=== PATIENT | male | born 1940 | race Caucasian/White ===

== ENCOUNTER 2018-03-14 09:10 | Emergency (ER) | payer OTHER ==
[~2018-03-14] VITALS: Ht 172.7 cm; Wt 102.1 kg
[~2018-03-14 09:10] MED LIST: ALLO300 PO; AMLO5 PO; ASPI81EC PO; Accupril40 MG PO; CAPHYD; CARV3.125 PO; CIPR500 PO; CYAN1000 PO; CYCL10 PO; Cardura Xl8 MG PO; DILT240; DILT240 PO; DOCU100 PO; DOXA4 PO; FISH1000; HYDR10; METF500; METF500 PO; OXYACE5T PO; PHENA200 PO; QUIN10; QUIN10 PO; TAMS.4ER PO; UNKNOWN BP MED
[2018-03-14 09:46] LABS: BASOPHILS ABSOLUTE AUTO 0.04 K/mm3 (0.00-0.23); BASOPHILS PERCENT AUTO 1 % (0-2); EOSINOPHILS ABSOLUTE AUTO 0.32 K/mm3 (0.00-0.68); EOSINOPHILS PERCENT AUTO 4 % (0-6); Hematocrit 36.5 % (37.0-53.0); IMMATURE GRAN ABSOLUTE AUTO 0.03 K/mm3 (0.00-0.10); IMMATURE GRAN PERCENT AUTO 0 % (0-1); LYMPHOCYTES ABSOLUTE AUTO 2.19 K/mm3 (0.84-5.20); LYMPHOCYTES PERCENT AUTO 29 % (21-46); MONOCYTES ABSOLUTE AUTO 0.57 K/mm3 (0.16-1.47); MONOCYTES PERCENT AUTO 8 % (4-13); Mean Corpuscular HGB 29.3 pg (26.0-34.0); Mean Corpuscular HGB Conc 32.9 g/dL (31.5-36.5); Mean Corpuscular Volume 89 fL (80-100); NEUTROPHILS ABSOLUTE AUTO 4.36 K/mm3 (1.96-9.15); NEUTROPHILS PERCENT AUTO 58 % (41-73); Platelet Count 206 K/mm3 (150-400); RDW Standard Deviation 49.1 fL (35.1-46.3); White Blood Cell Count 7.51 K/mm3 (4.00-11.30)
[2018-03-14 09:51] LABS: Albumin, Blood 3.2 g/dL (3.4-5.0); Albumin/Globulin Ratio 0.9 (0.8-1.8); Bilirubin, Total 0.5 mg/dL (0.1-1.0); Bun/Creatinine Ratio 21.4 (12.0-20.0); Calcium, Blood 7.9 mg/dL (8.5-10.1); Creatinine, Blood 1.31 mg/dL (0.60-1.20); Globulin, Blood 3.4 g/dL (2.2-4.0); Potassium, Blood 4.3 mmol/L (3.5-5.5); Total Protein, Blood 6.6 g/dL (6.4-8.2)
[2018-03-14] MEDS ORDERED: Voltaren100 GM TOP (12:50)
[2018-03-14] MEDS ORDERED: LIDO700A20 TOP (13:06)
== END 2018-03-14 13:15 | disposition home or self-care (01) ==
LOC: ER 09:10
PROVIDERS: Emergency Medicine
DX: R40.0 Somnolence (principal); M54.2 Cervicalgia; M54.9 Dorsalgia, unspecified; G89.29 Other chronic pain; R53.83 Other fatigue; I12.9 Hypertensive chronic kidney disease with stage 1 through stage 4 chronic kidney disease, or unspecified chronic kidney disease; N18.9 Chronic kidney disease, unspecified; F17.200 Nicotine dependence, unspecified, uncomplicated; Z88.8 Allergy status to other drugs, medicaments and biological substances; Z79.899 Other long term (current) drug therapy; Z79.82 Long term (current) use of aspirin
CPT/HCPCS: 36415; 80053; 85025; 93005; 93010; 96360; 96361; 99285-25; J7030

== ENCOUNTER → 2019-07-14 | Outpatient (CLI) | payer OTHER ==
[~2019-07-14] MED LIST changes: +LIDO700A20 TOP; +Voltaren100 GM TOP
[2019-07-14 12:26] LABS: BASOPHILS ABSOLUTE AUTO 0.05 K/mm3 (0.00-0.23); BASOPHILS PERCENT AUTO 1 % (0-2); EOSINOPHILS ABSOLUTE AUTO 0.09 K/mm3 (0.00-0.68); EOSINOPHILS PERCENT AUTO 1 % (0-6); Hematocrit 36.4 % (37.0-53.0); Hemoglobin 12.5 g/dL (13.5-17.5); IMMATURE GRAN ABSOLUTE AUTO 0.05 K/mm3 (0.00-0.10); IMMATURE GRAN PERCENT AUTO 1 % (0-1); LYMPHOCYTES ABSOLUTE AUTO 1.28 K/mm3 (0.84-5.20); LYMPHOCYTES PERCENT AUTO 14 % (21-46); MONOCYTES ABSOLUTE AUTO 0.91 K/mm3 (0.16-1.47); MONOCYTES PERCENT AUTO 10 % (4-13); Mean Corpuscular HGB 29.7 pg (26.0-34.0); Mean Corpuscular HGB Conc 34.3 g/dL (31.5-36.5); Mean Corpuscular Volume 87 fL (80-100); Mean Platelet Volume 8.5 fL (9.1-12.4); NEUTROPHILS ABSOLUTE AUTO 6.85 K/mm3 (1.96-9.15); NEUTROPHILS PERCENT AUTO 74 % (41-73); Platelet Count 251 K/mm3 (150-400); RDW Coefficient Variation 13.4 % (11.7-14.2); RDW Standard Deviation 41.5 fL (35.1-46.3); Red Blood Cell Count 4.21 M/mm3 (4.30-5.90); White Blood Cell Count 9.23 K/mm3 (4.00-11.30)
[2019-07-14 12:43] LABS: Alanine Aminotransfer (ALT/SGP 17 U/L (12-78); Albumin, Blood 3.2 g/dL (3.4-5.0); Albumin/Globulin Ratio 0.8 (0.8-1.8); Alk Phos 81 U/L (40-126); Anion Gap 11 mmol/L (6-16); Aspartate Aminotrans (AST/SGOT 16 U/L (12-37); Bilirubin, Total 0.6 mg/dL (0.1-1.0); Blood Urea Nitrogen 27 mg/dL (8-24); Bun/Creatinine Ratio 18.5 (12.0-20.0); CO2, Blood 22 mmol/L (21-32); Calcium, Blood 9.2 mg/dL (8.5-10.1); Chloride, Blood 105 mmol/L (98-108); Creatinine, Blood 1.46 mg/dL (0.60-1.20); Globulin, Blood 3.8 g/dL (2.2-4.0); Glomerular Filtration Rate 47 (60-); Glucose, Blood 104 mg/dL (70-99); Potassium, Blood 4.2 mmol/L (3.5-5.5); Sodium, Blood 138 mmol/L (136-145)
[2019-07-14 12:45] LABS: Troponin I <0.017 ng/mL (0.000-0.040)
== END ==
LOC: LAB SHORT 12:22 → LAB EV 12:22
PROVIDERS: Emergency Medicine
DX: R07.9 Chest pain, unspecified (principal)
CPT/HCPCS: 80053; 84484; 85025

== ENCOUNTER 2019-08-06 08:43 | Day surgery (SDC) | payer OTHER ==
[2019-08-22 11:31] LABS: Performing Lab SYMBIODX; Result SEE PATHOTH RESULTS; Test Name NEEDLE BIOPSY
== END 2019-08-06 12:10 | disposition home or self-care (01) ==
LOC: CT 08:43
PROVIDERS: Internal Medicine Critical Care Medicine
DX: C34.11 Malignant neoplasm of upper lobe, right bronchus or lung (principal); I12.9 Hypertensive chronic kidney disease with stage 1 through stage 4 chronic kidney disease, or unspecified chronic kidney disease; N18.9 Chronic kidney disease, unspecified; D63.1 Anemia in chronic kidney disease; G47.33 Obstructive sleep apnea (adult) (pediatric); M10.9 Gout, unspecified; E78.5 Hyperlipidemia, unspecified; D50.9 Iron deficiency anemia, unspecified; E66.9 Obesity, unspecified; Z68.31 Body mass index [BMI] 31.0-31.9, adult; Z87.891 Personal history of nicotine dependence; Z79.82 Long term (current) use of aspirin; Z79.899 Other long term (current) drug therapy; Z99.89 Dependence on other enabling machines and devices; Z88.8 Allergy status to other drugs, medicaments and biological substances
CPT/HCPCS: 32405; 77012; 88305; 88360

== ENCOUNTER 2019-08-06 13:08 | Emergency (ER) | payer OTHER ==
[~2019-08-06] VITALS: Ht 177.8 cm; Wt 93.9 kg
[2019-08-06 13:54] LABS: BASOPHILS ABSOLUTE AUTO 0.02 K/mm3 (0.00-0.23); BASOPHILS PERCENT AUTO 0 % (0-2); EOSINOPHILS PERCENT AUTO 0 % (0-6); Hematocrit 38.1 % (37.0-53.0); Hemoglobin 12.8 g/dL (13.5-17.5); IMMATURE GRAN ABSOLUTE AUTO 0.23 K/mm3 (0.00-0.10); IMMATURE GRAN PERCENT AUTO 2 % (0-1); LYMPHOCYTES ABSOLUTE AUTO 0.93 K/mm3 (0.84-5.20); LYMPHOCYTES PERCENT AUTO 6 % (21-46); MONOCYTES ABSOLUTE AUTO 0.77 K/mm3 (0.16-1.47); MONOCYTES PERCENT AUTO 5 % (4-13); Mean Corpuscular HGB 28.8 pg (26.0-34.0); Mean Corpuscular HGB Conc 33.6 g/dL (31.5-36.5); Mean Corpuscular Volume 86 fL (80-100); Mean Platelet Volume 8.4 fL (9.1-12.4); NEUTROPHILS ABSOLUTE AUTO 13.88 K/mm3 (1.96-9.15); NEUTROPHILS PERCENT AUTO 88 % (41-73); Platelet Count 318 K/mm3 (150-400); RDW Coefficient Variation 13.1 % (11.7-14.2); RDW Standard Deviation 40.4 fL (35.1-46.3); Red Blood Cell Count 4.45 M/mm3 (4.30-5.90); White Blood Cell Count 15.83 K/mm3 (4.00-11.30)
== END 2019-08-06 14:27 | disposition home or self-care (01) ==
LOC: ER 13:08
PROVIDERS: Physician Assistant
DX: K59.00 Constipation, unspecified (principal); C34.90 Malignant neoplasm of unspecified part of unspecified bronchus or lung; I10 Essential (primary) hypertension; F17.200 Nicotine dependence, unspecified, uncomplicated; Z88.8 Allergy status to other drugs, medicaments and biological substances; Z79.899 Other long term (current) drug therapy; Z79.82 Long term (current) use of aspirin
CPT/HCPCS: 36415; 74018; 85025; 93005; 93010; 99284-25

== ENCOUNTER 2019-09-19 00:21 | Day surgery (SDC) | payer OTHER ==
[2019-09-18 13:46] LABS: Hematocrit 23.1 % (37.0-53.0); Hemoglobin 7.6 g/dL (13.5-17.5); Mean Corpuscular HGB 29.6 pg (26.0-34.0); Mean Corpuscular HGB Conc 32.9 g/dL (31.5-36.5); Mean Corpuscular Volume 90 fL (80-100); Mean Platelet Volume 10.6 fL (9.1-12.4); NRBC ABSOLUTE 0.15 K/mm3 (0.00-0.02); NRBC Auto 0.5 /100 WBC (0.0-0.2); Platelet Count 64 K/mm3 (150-400); RDW Coefficient Variation 14.9 % (11.7-14.2); RDW Standard Deviation 46.5 fL (35.1-46.3); Red Blood Cell Count 2.57 M/mm3 (4.30-5.90); White Blood Cell Count 30.65 K/mm3 (4.00-11.30)
[2019-09-18 14:18] LABS: Alanine Aminotransfer (ALT/SGP 36 U/L (12-78); Albumin, Blood 2.6 g/dL (3.4-5.0); Alk Phos 128 U/L (50-136); Anion Gap 6 mmol/L (6-16); Aspartate Aminotrans (AST/SGOT 21 U/L (12-37); Bilirubin, Total 0.3 mg/dL (0.1-1.0); Blood Urea Nitrogen 28 mg/dL (8-24); CO2, Blood 23 mmol/L (21-32); Calcium, Blood 7.9 mg/dL (8.5-10.1); Chloride, Blood 106 mmol/L (98-108); Creatinine, Blood 1.12 mg/dL (0.60-1.20); Globulin, Blood 2.7 g/dL (2.2-4.0); Glomerular Filtration Rate >60 (60-); Glucose, Blood 141 mg/dL (70-99); Potassium, Blood 5.5 mmol/L (3.5-5.5); Sodium, Blood 135 mmol/L (136-145); Total Protein, Blood 5.3 g/dL (6.4-8.2)
[2019-09-18 14:46] LABS: BAND PERCENT MAN 6 % (0-8); BASOPHILS PERCENT MAN 0 % (0-2); EOSINOPHILS PERCENT MAN 0 % (0-6); LYMPHOCYTES ABSOLUTE MAN 1.83 K/mm3 (0.84-5.20); LYMPHOCYTES PERCENT MAN 6 % (21-46); METAMYELOCYTE ABSOLUTE MAN 0.61 K/mm3 (0.00-0.00); METAMYELOCYTE PERCENT MAN 2 % (0-0); MONOCYTES ABSOLUTE MAN 1.83 K/mm3 (0.16-1.47); MONOCYTES PERCENT MAN 6 % (4-13); MYELOCYTE ABSOLUTE MAN 2.14 K/mm3 (0.00-0.00); MYELOCYTE PERCENT MAN 7 % (0-0); NEUTROPHILS ABSOLUTE MAN 24.21 K/mm3 (1.96-9.15); SEG NEUTROPHILS PERCENT MAN 73 % (41-73); TOTAL CELLS COUNTED 100
[2019-09-19] MEDS ORDERED: FENT50TP TD (10:47)
[2019-09-19] MEDS ORDERED: DEXA4 PO (10:49)
[2019-09-19] MEDS ORDERED: HYDMOR4 PO (10:49)
[2019-09-19] MEDS ORDERED: DOXA4 PO (10:50)
[2019-09-19] MEDS ORDERED: Fish Oil Conc1000 MG PO (10:51)
[2019-09-19] MEDS ORDERED: ALPR1 PO (10:51)
== END 2019-09-19 10:10 | disposition home or self-care (01) ==
LOC: ATC 00:21 → EDSTATUS 07:30 → ATC 10:10
PROVIDERS: Internal Medicine Hematology & Oncology
DX: C34.01 Malignant neoplasm of right main bronchus (principal); D64.81 Anemia due to antineoplastic chemotherapy; I12.9 Hypertensive chronic kidney disease with stage 1 through stage 4 chronic kidney disease, or unspecified chronic kidney disease; C79.51 Secondary malignant neoplasm of bone; N18.9 Chronic kidney disease, unspecified; Z87.891 Personal history of nicotine dependence; Z79.82 Long term (current) use of aspirin; Z79.899 Other long term (current) drug therapy; Z88.8 Allergy status to other drugs, medicaments and biological substances
CPT/HCPCS: 36415; 36430; 80053; 82378; 85025; 86850; 86900; 86901; 86923; J7050; P9016

== ENCOUNTER 2019-10-03 07:55 | Inpatient (IN) | payer OTHER ==
[~2019-10-03] VITALS: Ht 177.8 cm; Wt 93.7 kg
[~2019-10-03 07:55] MED LIST changes: +ALPR1 PO; -ASPI81EC PO; -Accupril40 MG PO; -CYAN1000 PO; -Cardura Xl8 MG PO; -TAMS.4ER PO
[2019-10-03 08:30] LABS: Hematocrit 21.6 % (37.0-53.0); Hemoglobin 6.9 g/dL (13.5-17.5); Mean Corpuscular HGB 29.6 pg (26.0-34.0); Mean Corpuscular HGB Conc 31.9 g/dL (31.5-36.5); Mean Corpuscular Volume 93 fL (80-100); Mean Platelet Volume 9.5 fL (9.1-12.4); RDW Coefficient Variation 17.8 % (11.7-14.2); RDW Standard Deviation 54.4 fL (35.1-46.3); Red Blood Cell Count 2.33 M/mm3 (4.30-5.90)
[2019-10-03 08:32] LABS: White Blood Cell Count 0.39 K/mm3 (4.00-11.30)
[2019-10-03 08:34] LABS: BASOPHILS PERCENT AUTO 0 % (0-2); EOSINOPHILS PERCENT AUTO 0 % (0-6); IMMATURE GRAN PERCENT AUTO 0 % (0-1); LYMPHOCYTES ABSOLUTE AUTO 0.21 K/mm3 (0.84-5.20); LYMPHOCYTES PERCENT AUTO 54 % (21-46); MONOCYTES ABSOLUTE AUTO 0.06 K/mm3 (0.16-1.47); MONOCYTES PERCENT AUTO 15 % (4-13); NEUTROPHILS ABSOLUTE AUTO 0.12 K/mm3 (1.96-9.15); NEUTROPHILS PERCENT AUTO 31 % (41-73); Platelet Count 28 K/mm3 (150-400)
[2019-10-03 08:51] LABS: Alanine Aminotransfer (ALT/SGP 65 U/L (12-78); Albumin, Blood 2.4 g/dL (3.4-5.0); Albumin/Globulin Ratio 0.8 (0.8-1.8); Alk Phos 90 U/L (50-136); Anion Gap 15 mmol/L (6-16); Aspartate Aminotrans (AST/SGOT 19 U/L (12-37); Bilirubin, Total 1.5 mg/dL (0.1-1.0); Blood Urea Nitrogen 57 mg/dL (8-24); Bun/Creatinine Ratio 43.5 (12.0-20.0); CO2, Blood 15 mmol/L (21-32); Chloride, Blood 103 mmol/L (98-108); Creatinine, Blood 1.31 mg/dL (0.60-1.20); Globulin, Blood 3.1 g/dL (2.2-4.0); Glomerular Filtration Rate 56 (60-); Glucose, Blood 203 mg/dL (70-99); Potassium, Blood 5.9 mmol/L (3.5-5.5); Sodium, Blood 133 mmol/L (136-145); Total Protein, Blood 5.5 g/dL (6.4-8.2); Troponin I <0.015 ng/mL (0.000-0.040)
[2019-10-03 11:53] LABS: Source, Urine Catheter
[2019-10-03 11:58] LABS: Bilirubin, Urine Neg (Neg); Blood, Urine Neg (Neg); Glucose Qualitative, Urine Neg (Neg); Ketones, Urine Neg (Neg); Leukocyte Esterase, Urine Neg (Neg); Nitrite, Urine Neg (Neg); Protein, Urine 2+ (Neg); Specific Gravity, Urine 1.015 (1.003-1.022); Urobilinogen, Urine NORM (Normal)
[2019-10-03 12:06] LABS: Appearance, Urine Clear (Clear); Color, Urine Yellow (P-Yellow)
[2019-10-03 12:26] LABS: Bacteria Few /hpf; Hyaline Casts 0-2 /lpf (0-2); Red Blood Cells, Urine 0-2 /hpf (0-2); Squamous Epithelial Cells Not Seen /hpf (Few); White Blood Cells, Urine 0-2 /hpf (0-5)
[2019-10-03] MEDS ORDERED: DEXA4 PO (12:33)
[2019-10-03] MEDS ORDERED: Neurontin 100100 MG PO (12:33)
[2019-10-03] MEDS ORDERED: HYDMOR4 PO (12:35)
[2019-10-03] MEDS ORDERED: FENT50TP TD (12:35)
[2019-10-03] MEDS ORDERED: TAMS.4ER PO (12:36)
[2019-10-03] MEDS ORDERED: Cardura8 MG PO (12:37)
[2019-10-03] MEDS ORDERED: FOLI1 PO (12:37)
[2019-10-03] MEDS ORDERED: AMLO5 PO (12:39)
[2019-10-03] MEDS ORDERED: Accupril20 MG PO (12:39)
[2019-10-03] MEDS ORDERED: ALLO300 PO (12:39)
[2019-10-03] MEDS ORDERED: FISH OIL 1,2001 EACH PO (13:20)
[2019-10-03] MEDS ORDERED: B-121000 MC3 PO (13:20)
[2019-10-03] MEDS ORDERED: Aspir 8181 MG PO (13:20)
--- NOTE | 2019-10-03 18:46 | NUR ---
SHIFT SUMMARY... NO ACUTE NEGATIVE CHANGES NOTED THIS SHIFT. PT'S PAIN HAS BEEN POORLY CONTROLLED, NEW MEDICATION ORDERS WERE OBTAINED. PT AND FAMILY WERE INTRODUCED TO HOSPICE CARE AND STATED THEY WERE NOT QUITE READY FOR THAT YET. PROVIDER IS AWARE. PT'S VS HAVE IMPROVED AND ARE CURRENTLY STABLE. PT'S FAMILY AT THE BEDSIDE SINCE ADMIT. PT HAS GOTTEN 1 UNIT PRBC AND IS TRANSFUSING 2ND UNIT. CALL LIGHT IN REACH WILL CONTINUE TO MONITOR UNTIL REPORT IS GIVEN TO ONCOMING RN.
[2019-10-03 20:32] LABS: Hematocrit 24.5 % (37.0-53.0); Hemoglobin 8.4 g/dL (13.5-17.5)
[2019-10-03 20:45] LABS: Bun/Creatinine Ratio 43.9 (12.0-20.0); Calcium, Blood 7.1 mg/dL (8.5-10.1); Creatinine, Blood 1.32 mg/dL (0.60-1.20); Potassium, Blood 5.4 mmol/L (3.5-5.5)
[2019-10-04 04:17] LABS: Hematocrit 25.7 % (37.0-53.0); Hemoglobin 8.7 g/dL (13.5-17.5); Mean Corpuscular HGB 29.8 pg (26.0-34.0); Mean Corpuscular HGB Conc 33.9 g/dL (31.5-36.5); Mean Platelet Volume 9.9 fL (9.1-12.4); RDW Coefficient Variation 15.8 % (11.7-14.2); RDW Standard Deviation 46.6 fL (35.1-46.3); Red Blood Cell Count 2.92 M/mm3 (4.30-5.90)
[2019-10-04 04:22] LABS: BASOPHILS PERCENT AUTO 0 % (0-2); EOSINOPHILS PERCENT AUTO 0 % (0-6); IMMATURE GRAN PERCENT AUTO 0 % (0-1); LYMPHOCYTES ABSOLUTE AUTO 0.07 K/mm3 (0.84-5.20); LYMPHOCYTES PERCENT AUTO 16 % (21-46); MONOCYTES ABSOLUTE AUTO 0.07 K/mm3 (0.16-1.47); MONOCYTES PERCENT AUTO 16 % (4-13); Mean Corpuscular Volume 88 fL (80-100); NEUTROPHILS PERCENT AUTO 68 % (41-73)
[2019-10-04 04:24] LABS: Platelet Count 26 K/mm3 (150-400); White Blood Cell Count 0.44 K/mm3 (4.00-11.30)
[2019-10-04 04:34] LABS: Anion Gap 7 mmol/L (6-16); Blood Urea Nitrogen 50 mg/dL (8-24); CO2, Blood 21 mmol/L (21-32); Calcium, Blood 7.2 mg/dL (8.5-10.1); Chloride, Blood 107 mmol/L (98-108); Creatinine, Blood 1.19 mg/dL (0.60-1.20); Glomerular Filtration Rate >60 (60-); Glucose, Blood 88 mg/dL (70-99); Potassium, Blood 4.8 mmol/L (3.5-5.5); Sodium, Blood 135 mmol/L (136-145)
--- NOTE | 2019-10-04 06:28 | NUR ---
SHIFT SUMMARY PT A&O X4. VSS. MONITOR SHOWS SR-ST, HR 90's-110's. SPO2 > 92% ON 2L NC TITRATED TO 1L NC THIS SHIFT. PT C/O PAIN IN R SHOULDER, "BUTT," & BACK, MEDICATED X2 PER PT REQUEST/EMAR. PRESSURE ULCERS TO PT'S HIP & BACKSIDE W/ DRESSINGS IN PLACE. NS GTT INFUSING PER ORDERS. ALEXANDRA CATH PATENT AND DRAINING DENISE COLORED URINE. FAMILY PRESENT AT BEDSIDE T/O SHIFT. WILL CONTINUE TO MONITOR AND PROVIDE CARE UNTIL REPORT OFF TO DAY SHIFT RN.
--- NOTE | 2019-10-04 11:21 | NUR ---
[facility] visit conducted. Patient's spouse is standing outside the room and tells me the issues they are weighing through concerning further chemotherapy. I talk with her about risks vs. benefits and about patient's wishes. I then visit with patient. Patient is sleeping but easily awakens to the sound of his name. Patient tells me that he is lonely in the fight but the Lord is with him. Patient can barely keep his eyes open during the conversation. I suggest that I say a prayer for him and let him rest. Patient tells me that he would love some prayer. I gladly provide prayer. Patient voices deep appreciation. I will continue to remain available to patient and family.
--- NOTE | 2019-10-04 18:26 | NUR ---
SHIFT SUMMARY.... NO ACUTE NEGATIVE CHANGES NOTED THIS SHIFT. PT'S VS HAVE BEEN STABLE. PT HAS BEEN MEDICATED FOR PAIN PER EMAR. PT'S AT THE BEDSIDE MOST OF THIS SHIFT. PT HAS BEEN TURNED Q2 HRS. CATH CARE DONE PRN THIS SHIFT. ALEXANDRA IS PATENT AND DRAINING CLEAR DENISE URINE TO GRAVITY. PT HAS BEEN ON 1-2L NC WITH O2 SATS >90%. CALL LIGHT IN REACH WILL CONTINUE TO MONITOR UNTIL REPORT IS GIVEN TO ONCOMING RN.
[2019-10-05 04:48] LABS: Hematocrit 25.8 % (37.0-53.0); Hemoglobin 8.7 g/dL (13.5-17.5); Mean Corpuscular HGB 30.1 pg (26.0-34.0); Mean Corpuscular HGB Conc 33.7 g/dL (31.5-36.5); Mean Corpuscular Volume 89 fL (80-100); Mean Platelet Volume 9.4 fL (9.1-12.4); RDW Coefficient Variation 16.1 % (11.7-14.2); RDW Standard Deviation 48.7 fL (35.1-46.3); Red Blood Cell Count 2.89 M/mm3 (4.30-5.90)
[2019-10-05 04:56] LABS: Platelet Count 23 K/mm3 (150-400)
[2019-10-05 05:04] LABS: Alanine Aminotransfer (ALT/SGP 43 U/L (12-78); Albumin, Blood 1.8 g/dL (3.4-5.0); Albumin/Globulin Ratio 0.5 (0.8-1.8); Alk Phos 71 U/L (50-136); Anion Gap 9 mmol/L (6-16); Aspartate Aminotrans (AST/SGOT 15 U/L (12-37); Bilirubin, Total 1.2 mg/dL (0.1-1.0); Blood Urea Nitrogen 37 mg/dL (8-24); Bun/Creatinine Ratio 34.3 (12.0-20.0); CO2, Blood 19 mmol/L (21-32); Calcium, Blood 7.2 mg/dL (8.5-10.1); Chloride, Blood 110 mmol/L (98-108); Creatinine, Blood 1.08 mg/dL (0.60-1.20); Globulin, Blood 3.9 g/dL (2.2-4.0); Glomerular Filtration Rate >60 (60-); Glucose, Blood 115 mg/dL (70-99); Sodium, Blood 138 mmol/L (136-145); Total Protein, Blood 5.7 g/dL (6.4-8.2)
[2019-10-05 05:10] LABS: BAND PERCENT MAN 26 % (0-8); BASOPHILS PERCENT MAN 0 % (0-2); EOSINOPHILS PERCENT MAN 0 % (0-6); LYMPHOCYTES ABSOLUTE MAN 0.17 K/mm3 (0.84-5.20); LYMPHOCYTES PERCENT MAN 11 % (21-46); MONOCYTES PERCENT MAN 13 % (4-13); NEUTROPHILS ABSOLUTE MAN 1.21 K/mm3 (1.96-9.15); SEG NEUTROPHILS PERCENT MAN 50 % (41-73); TOTAL CELLS COUNTED 54
--- NOTE | 2019-10-05 06:44 | NUR ---
SHIFT SUMMARY PT A&O X4. VSS. SPO2 > 92% ON 1L NC W/ PT PREFERENCE TO REMAIN ON O2 FOR COMFORT. MONITOR SHOWS ST, HR 100-110. ALEXANDRA CATH PATENT AND DRAINING. NS GTT INFUSING PER ORDERS. NO EVENTS OVER NIGHT. PT MEDICATED FOR PAIN IN R SHOULDER, R SIDE, & BACK PER PT REQUEST/EMAR X2 THIS SHIFT. Q2H REPOSITIONING BY 2 STAFF MEMBERS W/ PRN EARLENE CARE/ATTENDS CHANGES. WILL CONTINUE TO MONITOR AND PROVIDE CARE UNTIL REPORT OFF TO DAY SHIFT RN.
--- NOTE | 2019-10-05 18:07 | NUR ---
SHIFT SUMMARY... NO ACUTE NEGATIVE CHANGES NOTED THIS SHIFT. PT'S VS HAVE BEEN STABLE, PT HAS BEEN NSR T/O SHIFT. PT HAS BEEN MEDICATED FOR PAIN PER EMAR WITH GOOD RESULTS. PT HAS HAD FAMILY AT THE BEDSIDE MOST OF THIS SHIFT. PT HAS BEEN SLEEPING MOST OF THE SHIFT. CALL LIGHT IN REACH WILL CONTINUE TO MONITOR UNTIL REPORT IS GIVEN TO ONCOMING RN.
[2019-10-05 20:57] LABS: Vancomycin, Trough 16.6 ug/mL (5.0-10.0)
--- NOTE | 2019-10-06 06:08 | NUR ---
SHIFT SUMMARY PT A&O X4. VSS. MONITOR SHOWS ST, HR 100-110. SPO2 > 92% ON RA. PT C/O PAIN IN R SHOULDER & BACK. PRESSURE ULCERS NOTED TO HIP & PT'S BUTTOCKS. PT INCONTINENT OF STOOL, ATTENDS IN PLACE. ALEXANDRA CATH PATENT AND DRAINING DENISE COLORED URINE. PT MEDICATED FOR PAIN T/O SHIFT PER PT REQUEST/EMAR. PT'S DAUGHTER AT BEDSIDE T/O SHIFT. WILL CONTINUE TO MONITOR AND PROVIDE CARE UNTIL REPORT OFF TO DAY SHIFT RN.
--- NOTE | 2019-10-06 11:37 | NUR ---
TRANSFER TO ROOM 331 REPORT CALLED TO BUD EVANS RN. PT TO TRANSFER VIA BED. FAMILY NOTIFIED. CONTINUE POT.
--- NOTE | 2019-10-06 15:24 | NUR ---
SUMMARY PCU 14 TRANSFER TODAY TO [place] [id number]. PT IS A/O X4, PALE, WEAK/FATIGUED. 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 STATE BACK & R SHOULDER PAIN, 02/13, PRN DILAUDID 2MG IV GIVEN FOR RELIEF. HE HAS FENTANYL PATCHES 150MCG TO L SHOULDER. EASILY FATIGUED EVEN w ATTEMPTING TO MAKE CONVERSATION. ASSISTING HIM w MEALS/FLUIDS. HAVE ENCOURAGED SHORT FAMILY VISITS & NUETROPENIC PRECAUTIONS. WBC @ 1.6. TELE REPORT STACH 110'S. LS DECREASED, COARSE BASES, BIOX >90% RA. PT IS PLEASANT/COOPERATIVE. [place]ound PATENT. IN ATTENDS, SM LOOSE BM SINCE ARRIVAL TO FLOOR.
--- NOTE | 2019-10-06 18:20 | NUR ---
PACKAGE DESIGNER IN TO ASSIST w DINNER, STATE PT APPEARS TO BE DECLINING. ON ASSESSMENT HE STATE FEELS SOB, BIOX 95-98% RA, O2 @ 2L PLACED FOR COMFORT. LUNGS CONTINUE DECREASED, COARSE/CRACKLES BASES, DR WALKER NOTIFIED, ORDER STOP IV NS @ THIS TIME. PT STATE PAIN CONTROL, STATE THINKS HE PANICKED WHEN WOKEN FOR DINNER. STATE CONTINUING WEAKNESS, FATIGUE. NO APPETITE. WILL CONT TO MX.
--- NOTE | 2019-10-06 19:32 | NUR ---
PT RESTING QUIETLY @ THIS TIME w SON @ BEDSIDE. NO S/S PAIN. BEDSIDE REPORT TO MARIAM MARRERO.
[2019-10-07 05:26] LABS: Hematocrit 22.7 % (37.0-53.0); Hemoglobin 7.6 g/dL (13.5-17.5); Mean Corpuscular HGB Conc 33.5 g/dL (31.5-36.5); Mean Corpuscular Volume 90 fL (80-100); Mean Platelet Volume 10.9 fL (9.1-12.4); RDW Standard Deviation 48.5 fL (35.1-46.3); Red Blood Cell Count 2.53 M/mm3 (4.30-5.90)
[2019-10-07 05:31] LABS: Platelet Count 22 K/mm3 (150-400)
[2019-10-07 05:52] LABS: Alanine Aminotransfer (ALT/SGP 47 U/L (12-78); Albumin, Blood 1.7 g/dL (3.4-5.0); Albumin/Globulin Ratio 0.5 (0.8-1.8); Alk Phos 90 U/L (50-136); Anion Gap 6 mmol/L (6-16); Aspartate Aminotrans (AST/SGOT 26 U/L (12-37); BAND PERCENT MAN 13 % (0-8); BASOPHILS PERCENT MAN 0 % (0-2); Blood Urea Nitrogen 34 mg/dL (8-24); Bun/Creatinine Ratio 35.6 (12.0-20.0); CO2, Blood 20 mmol/L (21-32); Calcium, Blood 7.5 mg/dL (8.5-10.1); Chloride, Blood 114 mmol/L (98-108); Creatinine, Blood 0.95 mg/dL (0.60-1.20); EOSINOPHILS PERCENT MAN 0 % (0-6); Globulin, Blood 3.2 g/dL (2.2-4.0); Glomerular Filtration Rate >60 (60-); Glucose, Blood 101 mg/dL (70-99); LYMPHOCYTES ABSOLUTE MAN 0.46 K/mm3 (0.84-5.20); LYMPHOCYTES PERCENT MAN 7 % (21-46); MONOCYTES ABSOLUTE MAN 0.33 K/mm3 (0.16-1.47); MONOCYTES PERCENT MAN 5 % (4-13); Magnesium, Blood 2.4 mg/dL (1.6-2.4); Phosphorus, Blood 1.6 mg/dL (2.5-4.9); Potassium, Blood 3.5 mmol/L (3.5-5.5); SEG NEUTROPHILS PERCENT MAN 75 % (41-73); Sodium, Blood 140 mmol/L (136-145); TOTAL CELLS COUNTED 100; Total Protein, Blood 4.9 g/dL (6.4-8.2)
[2019-10-07 05:53] LABS: Bilirubin, Total 0.9 mg/dL (0.1-1.0)
--- NOTE | 2019-10-07 06:17 | NUR ---
SHIFT SUMMARY PT IS A 79 Y/O MALE, ADMITTED FOR NEUTROPENIA. HE IS A&O X 4, AND A 2P MAX ASSIST OUT OF BED. PT HAS A HX OF STAGE 4 CANCER. HE WAS MEDICATED ONCE FOR PAIN WITH PRN DILAUDID. NO COMPLAINTS OF NAUSEA OR SOB. HE IS ON 2L OF O2 FOR COMFORT. PT'S BP WAS ELEVATED, IN THE 160-170S. ALL OTHER VITALS STABLE. NO ACUTE CHANGES IN PT CONDITION NOTED. WILL CONTINUE TO MONITOR AND TREAT PER EMAR UNTIL HAND OFF TO DAY SHIFT RN.
--- NOTE | 2019-10-07 11:37 | NUR ---
Case Conference Note Received 2nd Palliative Care referral with comments regarding Pt's inqiring about hospice. Arrived to Pt's room with bedside RN Lottie providing care. Pt's Dakota requests to conference outside of Pt's room. Dakota engages in conversation regarding hospice and states Pt will not be receiving chemo therapey any longer. Briefly educated on hospice philosophy with Dakota inquiring about in patient hospice. She states her home is not appropriate for Pt to return home. Dakota requests to continue conversation when Pt's daughter arrives. Dakota would like to meet with Palliative Care morning. Will discuss concerns with [place] Liaabel Ga. Palliative Care will remain available.
--- NOTE | 2019-10-07 16:01 | NUR ---
ALERT TO SELF AND FAMILY. TOLERATED ONE UNIT OF BLOOD. BRUISING T/O W/SWELLING. POOR APPETITE. ALEXANDRA IN AND DRAINING. SLEEPING MOST OF SHIFT AND APPEARS COMFORTABLE. MEDICATED FOR PAIN W/GOOD RESULTS. COUGHS UP THICK YELLOWISH TO BROWN SPOTS OF SPUTUM. GIVEN SUCTION TO HELP WITH SPUTUM. BED IN LOW POSITION. CALL LIGHT WITHIN REACH. PER RELATIVES UNABLE TO CARE FOR PATIENT AT HOME, SO WILL GO TO SNF. WCTM
--- NOTE | 2019-10-07 16:27 | NUR ---
Received call from bedside RN Lottie with report Pt does not have family at bedside and he may benefit from therapeutic visit by himself. Brief Pt visit this afternoon. Pt is resting with his eyes closed upon arrival but wakes to this RNs voice. Pt request assistance with obtaining a drink of water. Assisted Pt with drink. Attempted to have convesation but Pt requests for continued rest. Pt request visit at a later time. Palliative Care will remain available.
[2019-10-07 20:43] LABS: Vancomycin, Trough 17.8 ug/mL (5.0-10.0)
--- NOTE | 2019-10-08 04:55 | NUR ---
[employer] PRESS LABORER SUMMARY NO ACUTE CHANGES THIS SHIFT. PT AAOX3, HAS BEEN PLEASANT AND MAKES NEEDS KNOWN. PT REQUESTS COLD WASH CLOTHES ON FOREHEAD ALTHOUGH PT IS AFEBRILE. MEDICATED FOR CHRONIC PAIN WITH 4 MG DILAUDID PO AT START OF SHIFT. PT REPORTS GOOD PAIN RELIEF. PT DENIED NEEDING ADDITIONAL PAIN MEDS LATER THIS AM. PT HAS RESTED FOR MOST OF THE SHIFT. DTR AT BEDSIDE THROUGH THE NIGHT. WILL CONTINUE TO MONITOR.
[2019-10-08 06:14] LABS: Hematocrit 29.1 % (37.0-53.0); Hemoglobin 9.8 g/dL (13.5-17.5); Mean Corpuscular HGB 30.1 pg (26.0-34.0); Mean Corpuscular HGB Conc 33.7 g/dL (31.5-36.5); Mean Corpuscular Volume 89 fL (80-100); Mean Platelet Volume 10.7 fL (9.1-12.4); RDW Coefficient Variation 15.9 % (11.7-14.2); RDW Standard Deviation 48.1 fL (35.1-46.3); Red Blood Cell Count 3.26 M/mm3 (4.30-5.90); White Blood Cell Count 11.95 K/mm3 (4.00-11.30)
--- NOTE | 2019-10-08 06:18 | NUR ---
Patient gave this nursing unit coordinator permission to help take care if him today 10/08/2019.
[2019-10-08 06:27] LABS: Platelet Count 38 K/mm3 (150-400)
[2019-10-08 06:35] LABS: BAND PERCENT MAN 6 % (0-8); BASOPHILS PERCENT MAN 0 % (0-2); EOSINOPHILS PERCENT MAN 0 % (0-6); LYMPHOCYTES ABSOLUTE MAN 0.35 K/mm3 (0.84-5.20); LYMPHOCYTES PERCENT MAN 3 % (21-46); METAMYELOCYTE ABSOLUTE MAN 0.23 K/mm3 (0.00-0.00); METAMYELOCYTE PERCENT MAN 2 % (0-0); MONOCYTES ABSOLUTE MAN 0.23 K/mm3 (0.16-1.47); MONOCYTES PERCENT MAN 2 % (4-13); NEUTROPHILS ABSOLUTE MAN 11.11 K/mm3 (1.96-9.15); SEG NEUTROPHILS PERCENT MAN 87 % (41-73); TOTAL CELLS COUNTED 100
--- NOTE | 2019-10-08 07:23 | NUR ---
PER DR.J.POWELL ROCHA TO CANDI ALEXANDRA
--- NOTE | 2019-10-08 09:27 | NUR ---
PER DR.POWELL ROCHA FOR R.T. TO DO DEEP SUCTIONING. PATIENT AGRREABLE. R.T. NOTIFIED
--- NOTE | 2019-10-08 09:50 | NUR ---
LEFT MESSAGE ON DR. BORDEN VOICE MAIL, PATIENT POSSIBLY ASPIRATNG, STOMACH DISTENDED, POSSIBLE COUGHING UP STOMACH FLUID. AWAITING ORDERS FOR NG(?) TUBE.
--- NOTE | 2019-10-08 12:13 | NUR ---
PATIENT HAS SUCTION , KENDALL, AND IS ABLE TO USE IT. APPEARS COMFORTABLE.
--- NOTE | 2019-10-08 12:45 | NUR ---
Spiritual care visit conducted. Patient is lying in bed and resting. Patient is very aware of the conversation going on around him and can answer in very short sentences. Patient's , Dakota is bedside and fills me in on what the doctors are saying and what the plan of care is. Patient holds my hand as we pray and is very appreciative of prayer. Patient states that he is miserable and in pain. Dakota tells me that he still has a few more minutes until he can have more pain medication. We talk about jasson, God's care in the midst of suffering and the amazing team of people that surround them. I listen empathically and provide a calming presence and pastoral counselor nurses' association. I will continue to remain available to patient and family.
--- NOTE | 2019-10-08 13:23 | NUR ---
Pt visit this afternoon. Pt resting in bed upon arrival. Pt reports his pain is improving. Still appears mildly anxious. Dakota at bedside and reports symptoms are improving. No other concerns reported at this time. Spoke with bedside RN Sorin and discussed case. Palliative Care will remain available.
--- NOTE | 2019-10-08 18:00 | NUR ---
Spiritual care routine visit: Asked by RN to meet with spouse outside ofroom to provide education regarding comfort care/hospice. Dakota was tearful, but appropriate. She verbalized understanding of physician's explaination of Bryson's progresive illness. She does not want his to suffer any longer. Both their bank vault clerk and Animal Nutrition Teacher Dex Naranjo have been providing spiritual counseling case manager and prayer. They have an easy rapport and Dex will continue to provide spiritual support throughout hospitalization. Prayer provided with spouse.
--- NOTE | 2019-10-08 18:21 | NUR ---
PATIENT ALERT TO SELF AND FAMILY. REFUSES MOST TURNS. ABD VERY DISTENDED. NG PLACED WITH PATIENT SEEMING TO FEEL BETTER. 900ML DARK FLUID OUT RIGHT AWAY. TUBE PLACEMENT VERIFIED BY XRAY. WCTM
--- NOTE | 2019-10-08 19:23 | NUR ---
PER HOWIE OK TO CHANGE FENTANYL PATCH TODAY ONE IS DUE TO BE CHANGED TODAY AND ONE TOMORROW. OK TO TAKE BOTH OFF AND REPLACE W/150 UG.
--- NOTE | 2019-10-09 04:50 | NUR ---
[employer] CRM DEVELOPER SUMMARY PT CONTINUES ON COMFORT CARE. RECIEVED ORDERS TO CHANGE OUT FENTANYL PATCHES AFTER FAMILY REQUESTED. MEDICATED FOR BREAKTHROUGH PAIN WIT 20 MG ROXANOL THROUGHOUT THE NIGHT. NG TUBE SET TO LOW INTERMITTENT SUCTION, PUT OUT 800 ML OF DARK GREEN FLUID SINCE NG TUBE WAS PLACED EARLIER ON . PT DTR AT BEDSIDE THROUGH THE NIGHT. WILL CONTINUE TO MONITOR.
--- NOTE | 2019-10-09 14:11 | NUR ---
Pt resting in bed upon arrival and receiving pain medication from bedside ELIDA Morales. Pt reports current regimen is managing pain. Family request when staff enters room to ask Pt if he needs something for pain or sleep. Family reports Pt does'nt think to report his pain often. No other concerns reported at this time. Spoke with bedside ELIDA Morales and relayed family's request. Palliative Care will remain available.
--- NOTE | 2019-10-09 17:44 | NUR ---
COMFORT CARE PT SLEEPING SOUNDLY AT THIS TIME. NO GRIMACING OR MOANING NOTED. WILL CONTINUE TO MONITOR FOR COMFORT.
--- NOTE | 2019-10-09 18:10 | NUR ---
SHIFT SUMMARY PT HAS HAD A LOT OF FAMILY IN TO SEE HIM THROUGH OUT THE SHIFT. NG TUBE IN PLACE AND HOOKED TO INTERMITTEN SUCTION. PT HAS HAD LARGE AMOUNTS TO DRINK THROUGH OUT THE SHIFT THAT IS SUCTIONED OUT VIA NG TUBE. MEDICATED SEVERAL TIMES FOR PAIN. THIS LATE AFTERNOON, PT RECEIVED PAIN MEDICATIONS AND ATIVAN AND PT HAS BEEN SLEEPING WELL UNTIL NOW. MEDICATED FOR PAIN PER EMAR THIS EVENING AND ASSISTED PT WITH DRINKING SOME FLUIDS. NO FURTHER COMPLAINTS OR REQUESTS AT THIS TIME. SOFT TOUCH CALL LIGHT IN REACH. WILL CONTINUE TO MONITOR COMFORT AND REPORT TO ONCOMING RN.
--- NOTE | 2019-10-10 04:35 | NUR ---
SHIFT SUMMARY: PT IS ALERT AND ORIENTED WITH INTERMITTENT CONFUSION. PT RESTING IN BED THROUGHOUT THE NIGHT. FAMILY IN TO VISIT NEAR THE START OF SHIFT. PT SHOWED S/S FOR PAIN, GAVE PRN DILAUDID. PT SHOWED S/S FOR ANXIETY AND SOB, GAVE PRN ATIVAN. BOTH MEDICATIONS WERE EFFECTIVE. PT GIVEN FLUIDS PER REQUEST. NG TUBE SET TO SUCTION. NO ACUTE CHANGES OR COMPLICATIONS OVERNIGHT. WILL CONTINUE TO MONITOR.
--- NOTE | 2019-10-10 10:35 | NUR ---
AM CARE PT RESTLESS IN ROOM MEDICATED FOR PAIN AND ANXIETY PER EMAR. BED BATH GIVEN WITH SHELTER CASE MANAGER ASSISTANCE. PT TOLERATED WELL. ALEXANDRA PATENT AND DRAINING. WILL CONTINUE TO MONITOR FOR COMFORT. FAMILY AT BEDSIDE.
--- NOTE | 2019-10-10 11:27 | NUR ---
Spiritual care visit conducted. Patient's spouse, Dakota, and daughter, Julianne, are bedside while patient continues to decline. Dakota expresses (with the proding of Julianne) that she is exhausted. We talk about what they are seeing with the patient and how difficult it is to watch. Julianne tells me where the adult children are located (in several different states) and how they plan to support Dakota around the clock for the next several days. I listen empathically, normalize their experience and provide prayer. Dakota and Julianne voice gratitude for my time and care. I will continue to remain available to patient and family.
--- NOTE | 2019-10-10 19:19 | NUR ---
SHIFT SUMMARY THIS RN MEDICATED FOR PAIN AND ANXIETY SEVERAL TIMES THIS SHIFT. NG TUBE IN PLACE AND ON SUCTION FOR COMFORT. PT HAS NOT SPOKEN TODAY AND OPENS EYES BREIFLY. FAMILY HAS BEEN AT BEDSIDE ALL SHIFT. REPORT GIVEN TO MARIAM MARRERO.
--- NOTE | 2019-10-10 19:26 | NUR ---
Review with nursing pt symptoms and increased distention and medication need theraputic time with family.
--- NOTE | 2019-10-10 21:26 | NUR ---
Pastoral care visit. Family in room at bedside grieving appropriately. Empathic presence provided as family divulge about the pt's life narrative briefly. Consolatory prayer and encouragement offered.
--- NOTE | 2019-10-11 04:30 | NUR ---
SHIFT SUMMARY ASSUMED CARE OF PT AT 1900. PT PASSED AT 1999. CHARGE NURSE NOTIFIED, FAMILY CAME TO SEE PT. DONOR LINE CALLED, FAMILY AGREED TO EYE DONATION. EYE DONATION COMPLETED AT 030. COMPA LEFT WITH PT AT 0426.
== END 2019-10-10 20:00 | DRG 808 ==
LOC: ER 07:55 → PCU 12:32 → MEDS 12:32 → PCU 13:08 → MEDS 10-06 12:00
PROVIDERS: Emergency Medicine; Hospitalist; ADMIT Student in an Organized Health Care Education/Training Program
PROC: 0D9670Z Drainage of Stomach with Drainage Device, Via Natural or Artificial Opening (ICD-10-PCS; 2019-10-03)
PROC: 30233N1 Transfusion of Nonautologous Red Blood Cells into Peripheral Vein, Percutaneous Approach (ICD-10-PCS; principal; 2019-10-06)
DX: D61.810 Antineoplastic chemotherapy induced pancytopenia (principal); J18.9 Pneumonia, unspecified organism; G92 Toxic encephalopathy; E87.2 Acidosis; C79.51 Secondary malignant neoplasm of bone; K56.7 Ileus, unspecified; C34.91 Malignant neoplasm of unspecified part of right bronchus or lung; E86.9 Volume depletion, unspecified; D61.1 Drug-induced aplastic anemia; G89.3 Neoplasm related pain (acute) (chronic); E86.0 Dehydration; I10 Essential (primary) hypertension; I95.9 Hypotension, unspecified; L89.219 Pressure ulcer of right hip, unspecified stage; L89.229 Pressure ulcer of left hip, unspecified stage; M10.9 Gout, unspecified; M25.512 Pain in left shoulder; Z92.21 Personal history of antineoplastic chemotherapy; Z51.5 Encounter for palliative care; R73.03 Prediabetes; F17.210 Nicotine dependence, cigarettes, uncomplicated; Z66 Do not resuscitate; E87.5 Hyperkalemia; D63.8 Anemia in other chronic diseases classified elsewhere; T45.1X5A Adverse effect of antineoplastic and immunosuppressive drugs, initial encounter
CPT/HCPCS: 36415; 36430; 51702; 70450; 71045; 80048; 80053; 80202; 81001; 83605; 83735; 84100; 84484; 85014; 85018; 85025; 86850; 86900; 86901; 86923; 87040; 93005; 93010; 96361-59; 96365-59; 96366-59; 99285-25; A9270-GY; J1170; J2060; J2270; J2405; J2543; J2550; J3370; J7030; J7050; P9016